=== PATIENT | male | born 1950 | race Caucasian/White ===

== ENCOUNTER 2017-08-11 06:38 | Day surgery (SDC) | payer MEDICARE, SELFPAY ==
[2017-08-08 11:31] VITALS: BMI 26.6
[2017-08-11] VITALS (15 sets, daily range): BP systolic 84–155; BP diastolic 41–82; PULSE 62–78; RESP 11–24; TEMP 36.4; O2SAT 92–98
--- NOTE | 2017-08-11 08:29 | P.PCN_ITS ---
[facility] Procedure Note Procedure Note:: Colonoscopy Procedure Report: Colonoscopy with cold snare polypectomy Endoscopist: Schuyler Bergeron II, MD Referring physician: Alexandru Boston MD Date of Procedure: August 11, 2017 Equipment: Olympus 180 variable stiffness pediatric colonoscope Sedation: Fentanyl 100 mg IV/ Versed 7 mg IV Indication: Mr. Armando is a 67-year-old gentleman who is here for follow-up screening/surveillance colonoscopy. Patient does have a history of colonic polyps and his last colonoscopy was in 2008. He reports problems with constipation and bowel habit difficulty. He reports no abdominal pain, weight loss, rectal bleeding or family history of colon cancer. Procedure: Prior to the procedure, a history and physical exam was performed, and patient' s medications and allergies were reviewed. The risks, benefits and alternatives of the sedation and procedure were discussed with the patient. All questions were answered and informed consent was obtained. The patient was brought to the procedure room. Patient identification and proposed procedure were verified by the physician and the nurse. The patient was placed in a left lateral decubitus position and the scope was passed under direct vision. Throughout the procedure, the patient's blood pressure, pulse, and oxygen saturations were monitored continuously. The colonoscopy was accomplished without difficulty. The patient tolerated the procedure well. Findings: On digital rectal examination there was normal rectal tone. There were no external hemorrhoids. The prostate was moderately to markedly firm but without nodules. The colonoscope was introduced through the anal canal to the rectum and advanced to the cecum. The ileocecal valve and appendiceal orifice were identified. The scope was advanced a short distance into the ileum which appeared grossly normal. The scope was then withdrawn into the colon. There were 10 colon polyps identified in the cecum/ascending ?4, sigmoid ?2 and rectum ?3. These ranged in size from 4-7 mm and were all removed via cold snare polypectomy. There were scattered diverticuli throughout the colon more predominantly in the descending and sigmoid colon (LEFT colon). The rectum itself was normal. Upon retroflexion within the rectum there were grade 1 internal hemorrhoids. Impression: 1. Colonic polyps ?10 2. Pandiverticulosis 3. Grade 1 internal hemorrhoids 4. Very firm prostate Plan: I will follow up the polyp pathology and recommend repeat colonoscopy again in 3 years based upon the polyp histology. Based on the patient's problems with constipation, would recommend a fiber bowel regimen once or twice daily on a routine daily basis. I will recommend PSA testing at this has not been recently performed.
[2017-08-11 10:54] LABS: Prostate Specific Ag, Diagnost 2.82 ng/mL (0.0-4.0)
== END 2017-08-11 10:00 | disposition home or self-care (01) ==
LOC: OUTP 06:41
PROVIDERS: PCP Family Medicine; Visit Provider Internal Medicine Gastroenterology
PROC: 0DJD8ZZ Inspection of Lower Intestinal Tract, Via Natural or Artificial Opening Endoscopic (ICD-10-PCS; CPT 45378; principal; 2017-08-11 08:30)
DX: Z12.11 Encounter for screening for malignant neoplasm of colon (principal); K63.5 Polyp of colon; K57.30 Diverticulosis of large intestine without perforation or abscess without bleeding; K64.0 First degree hemorrhoids; Z86.010 Personal history of colon polyps
CPT/HCPCS: 45380; 84153; 88305; 99152; 99153

== ENCOUNTER → 2017-08-23 12:38 | Outpatient (CLI) | payer MEDICARE, SELFPAY ==
--- NOTE | 2017-08-23 12:41 | CT_ITS ---
EXAM: CT LUNG LOW DOSE WO CONTRAST COMPARISON: None HISTORY: 67-year-old male with 54 pack-year smoking history asymptomatic ORDERING PHYSICIAN: Julio Cesar Boston MD PATIENT AGE: 67 years TECHNIQUE: The exam was performed on a GE Light Speed [address] scanner using 2.94 mGy CTDI. A low dose helical CT CHEST was performed on a multi-detector scanner The LDCT was performed in a facility that meets the criteria for the screening program. Data regarding this exam was submitted to ACR which is an approved registry. The order for this exam indicates that it came as a result of a lung cancer screening counseling shard decision-making visit that included all the elements required of such a visit including smoking cessation. The radiologist interpreting this exam meets the [facility] criteria for the LDCT lung cancer screening program. The exam is reported using the Lung-RADS classification scale and reported to the ACR registry. NOTE: This study was performed for the specific purposes of lung cancer screening and is not an alternative to diagnostic chest CT. RADIATION DOSE: CTDI vol(CT dose Index-volume) = 2.94mG DLP (Dose Length Product) = 98.78 mGcm FINDINGS: Mild centrilobular emphysematous changes with calcified granuloma in the left upper lobe. There is mild motion artifact which does obscure fine detail and may obscure small nodules there is a 5 mm noncalcified nodule in the superior segment left lower lobe 08/25/2017 exam There are degenerative changes in the thoracic spine with kyphosis and mild wedging of T8, T9, and T11 likely chronic. IMPRESSION: 1. Lung RADS Category: 3, probably benign 2. Other findings: Emphysema/COPD Degenerative change thoracic spine. Old granulomatous disease RECOMMENDATIONS: 6 month LDCT follow-up
== END ==
PROVIDERS: PCP Family Medicine; Visit Provider Family Medicine
DX: Z87.891 Personal history of nicotine dependence (principal); Z12.2 Encounter for screening for malignant neoplasm of respiratory organs

== ENCOUNTER → 2018-09-04 12:49 | Outpatient (CLI) | payer MEDICARE, SELFPAY ==
--- NOTE | 2018-09-04 13:45 | CT_ITS ---
CT lung screening EXAM: CT LUNG LOW DOSE WO CONTRAST HISTORY: 55 pack year smoking history asymptomatic for lung cancer ITS.REASON: TOBACCO USE ORDERING PHYSICIAN: Julio Cesar Boston MD PATIENT AGE: 68 years COMPARISON: 08/23/2017 TECHNIQUE: The exam was performed on a GE Light Speed [address] scanner using 2.90 mGy CTDI. A low dose helical CT CHEST was performed on a multi-detector scanner. All CT scans at the facility use one or more dose reduction, viz: automated exposure control, ma/kV adjustment per patient size (including targeted exams where dose is matched to indication, i.e. head), or iterative reconstruction technique. The LDCT was performed in a facility that meets the criteria for the screening program. Data regarding this exam was submitted to ACR which is an approved registry. The order for this exam indicates that it came as a result of a lung cancer screening counseling shard decision-making visit that included all the elements required of such a visit including smoking cessation. The radiologist interpreting this exam meets the CMS criteria for the LDCT lung cancer screening program. The exam is reported using the Lung-RADS classification scale and reported to the ACR registry. NOTE: This study was performed for the specific purposes of lung cancer screening and is not an alternative to diagnostic chest CT. RADIATION DOSE: CTDI vol(CT dose Index-volume) = 2.90mG DLP (Dose Length Product) = 96.27 mGcm FINDINGS: Centrilobular disease/COPD. Old granulomatous disease. Stable 5 mm nodule right upper lobe axial image #31 Stable 4 mm nodule superior segment left lower lobe No new nodules apparent Calcified granuloma left upper lobe Degenerative changes thoracic spine with mild kyphosis and mild chronic wedging of T7, T8, and T9 IMPRESSION: 1. Lung RADS Category: 2, benign 2. Other findings: Centrilobular emphysema, COPD RECOMMENDATIONS: 12 month LDCT follow-up
[2018-09-04 13:50] LABS: Basophils # 0.1 K/mm3 (0-0.2); Basophils % 0.6 % (0.1-2.0); Eosinophils # 0.1 K/mm3 (0.0-0.4); Eosinophils % 0.9 % (0.1-12.0); Hematocrit 48.6 % (42.0-52.0); Hemoglobin 16.2 g/dL (14.1-18.0); Lymphocytes # 1.6 K/mm3 (0.7-4.5); Lymphocytes % 18.5 % (10-50); Mean Corpuscular HGB Conc 33.4 g/dL (31.8-35.4); Mean Corpuscular Volume 89.9 fl (80-94); Mean Platelet Volume 7.9 fl (7.4-10.4); Monocytes # 0.5 K/mm3 (0.1-1.0); Monocytes % 5.1 % (1.7-9.3); Neutrophils # 6.6 K/mm3 (1.8-7.8); Neutrophils % 74.9 % (37.0-80.0); Platelet Count 266 K/mm3 (142-424); Red Blood Count 5.41 M/mm3 (4.60-6.20); Red Cell Distribution Width 13.7 % (11.5-17.5); White Blood Count 8.8 K/mm3 (4.8-10.8)
[2018-09-04 19:58] LABS: Blood Urea Nitrogen 16 mg/dL (7-18); Calcium 9.2 mg/dL (8.5-10.1); Carbon Dioxide 32 mmol/L (21.0-32.0); Chloride 105 mmol/L (98-107); Creatinine,Serum 1.16 mg/dL (0.70-1.30); Estimated Glomerular Filt Rate 62 ml/min (>60); GFR (African American) 75 ML/MIN (>60); Glucose 54 mg/dL (74-106); Sodium 145 mmol/L (136-145)
== END ==
PROVIDERS: Surgery; PCP Family Medicine; Visit Provider Family Medicine
DX: Z12.2 Encounter for screening for malignant neoplasm of respiratory organs (principal); Z87.891 Personal history of nicotine dependence; J43.9 Emphysema, unspecified; K40.90 Unilateral inguinal hernia, without obstruction or gangrene, not specified as recurrent
CPT/HCPCS: 36415; 80048; 85025

== ENCOUNTER → 2018-09-04 13:21 | Outpatient (CLI) | payer MEDICARE, SELFPAY | PROVIDERS: Visit Provider Surgery | DX: K50.90 Crohn's disease, unspecified, without complications (principal) | CPT/HCPCS: 36415; 80048; 85025 ==

== ENCOUNTER → 2020-07-15 14:12 | Outpatient (CLI) | payer MEDICARE, SELFPAY ==
--- NOTE | 2020-07-15 14:16 | CT_ITS ---
PROCEDURE: CT LUNG SCREENING CLINICAL INDICATION: H/O NICOTINE DEPENDENCY COMPARISON: CT LUNGSCREEN CT lung screening from 09/04/2018 TECHNIQUE: The exam was performed on a GE Light Speed [address] scanner using 2.90 mGy CTDI. A low dose helical CT CHEST was performed on a multi-detector scanner. All CT scans at the facility use one or more dose reduction, viz: automated exposure control, ma/kV adjustment per patient size (including targeted exams where dose is matched to indication, i.e. head), or iterative reconstruction technique. The LDCT was performed in a facility that meets the criteria for the screening program. Data regarding this exam was submitted to ACR which is an approved registry. The order for this exam indicates that it came as a result of a lung cancer screening counseling shard decision-making visit that included all the elements required of such a visit including smoking cessation. The radiologist interpreting this exam meets the [facility] criteria for the LDCT lung cancer screening program. The exam is reported using the Lung-RADS classification scale and reported to the ACR registry. NOTE: This study was performed for the specific purposes of lung cancer screening and is not an alternative to diagnostic chest CT. RADIATION DOSE: CTDI vol(CT dose Index-volume) = 2.90mG DLP (Dose Length Product) = 92.99 mGcm FINDINGS: Changes of COPD and old granulomatous disease. No new suspicious nodules apparent. A stable 5 mm nodules present in the right upper lobe. Stable 4 mm nodule superior segment left lower lobe. OTHER FINDINGS: Degenerative changes thoracic spine with mild kyphosis and mild wedging T11-T9 T8 T7 and T6 not significantly changed.. There is mild prominence of the ascending aorta at 4 cm not significantly changed IMPRESSION: Lung-RADS Category 2 Benign Appearance or Behavior Follow-up: Continue annual screening with LDCT in 12 months Dictated by: Joshua Miranda MD 07/29/2020 18:14 Joshua Miranda MD in [place] 07/29/2020 18:14
== END ==
PROVIDERS: PCP Family Medicine; Visit Provider Family Medicine
DX: Z87.891 Personal history of nicotine dependence (principal); Z12.2 Encounter for screening for malignant neoplasm of respiratory organs

== ENCOUNTER → 2022-03-07 13:19 | Outpatient (CLI) | payer MEDICARE, SELFPAY | PROVIDERS: PCP Family Medicine; Visit Provider Family Medicine | DX: U07.1 COVID-19 (principal) | CPT/HCPCS: C9803; U0003; U0005 ==

== ENCOUNTER → 2022-04-20 11:23 | Outpatient (CLI) | payer MEDICARE, SELFPAY | PROVIDERS: PCP Family Medicine; Visit Provider Surgery | DX: Z01.812 Encounter for preprocedural laboratory examination (principal); Z20.822 Contact with and (suspected) exposure to COVID-19; Z12.11 Encounter for screening for malignant neoplasm of colon | CPT/HCPCS: C9803; U0003; U0005 ==

== ENCOUNTER → 2022-08-11 14:07 | Outpatient (CLI) | payer MEDICARE, SELFPAY ==
--- NOTE | 2022-08-11 14:16 | CT_ITS ---
FINAL REPORT TECHNIQUE: Axial CT images of the chest were obtained without contrast. Low-dose protocol was utilized. This study was performed with techniques to keep radiation doses as low as reasonably achievable (ALARA). Individualized dose reduction techniques using automated exposure control or adjustment of mA and/or kV according to the patient's size were employed. CLINICAL HISTORY: H/O NICOTINE DEPENDENCE current smoker 1/2ppd x59 years COMPARISON: 07/15/2022 FINDINGS: CT CHEST WITHOUT, LOW DOSE SCREENING CT Di Vol: 2.90 mGy DLP: 98.47 mGy*cm There is no axillary, mediastinal, or hilar adenopathy. The heart size is normal. There is no pleural or pericardial effusion. The lung windows show interval development of right upper lobe mass peripherally near the level of the minor fissure measuring 29 x 26 mm. This is highly suspicious for neoplasm. A 4 mm right upper lobe nodule on image 28 and a 4 mm left lower lobe nodule on image 39 are stable. Limited images of the upper abdomen are unremarkable. IMPRESSION: Interval development of a dominant right lower lobe lesion highly suspicious for neoplasm. Other small nodules are stable. LR Category 4B: Recommend CT guided biopsy and PET-CT. Reviewed, Interpreted and Dictated by Julio Cesar Gotti MD Transcribed by Elizabeth Delaney Authenticated and [facility]
== END ==
PROVIDERS: PCP Family Medicine; Visit Provider Family Medicine
DX: Z87.891 Personal history of nicotine dependence (principal); Z12.2 Encounter for screening for malignant neoplasm of respiratory organs
CPT/HCPCS: 71271

== ENCOUNTER 2022-09-02 09:36 | Day surgery (SDC) | payer MEDICARE, SELFPAY ==
[2022-09-01 12:55] VITALS: BMI 28.3
[2022-09-02 10:34] VITALS: BP 170/83; PULSE 78; RESP 18; TEMP 36.8; O2SAT 96
--- NOTE | 2022-09-02 10:58 | EXP.ANES.CKL ---
[facility] Disclaimer: The information contained in this section may have been updated after the patient was seen, as this information can be updated by other users. Medical History Allergies COPD (chronic obstructive pulmonary disease) Hemorrhoid Hyperthyroidism Hypothyroid Surgical History History of colonoscopy Hx of umbilical hernia repair Family History Other Family history of cancer Family history of diabetes mellitus type II Family history of hypothyroidism Social History Smoking Status: Current every day smoker tobacco type: cigarettes packs per day: 1 alcohol intake: never substance use type: denies use current occupational status: retired Travel in the last 8 weeks: None household members: spouse housing: house marital status: caffeine: Yes (2 CUPS/DAY) special melanie needs: No agree to transfusion: No do you feel safe at home: Yes victim of physical abuse: No victim of emotional abuse: No victim of sexual abuse: No would you like helpful sources: No [facility] Anesthesia Checklist Patient Identification Patient Identification: Arm Band Structural Data Admitted From: Home Planned Operative Procedure/s: colonoscopy Consent for Planned Operative Procedure(s) Verified: Yes Verified Documents: Surgical Consent NPO Status Verified Time NPO: 00:00 Additional verifications Patient : No Anesthesia Reactions: No Hx Blood Transfusions: No Blood Transfusion Reaction: No Cephalosporin Allergy: No Previous Colonoscopy: No Airway Assessment C-Spine Mobility Assessed: Yes TMJ Mobility Assessed: Yes Dentition: Edentulous Neurological Assessment Level of Consciousness: Awake, Alert, Appropriate and Follows Commands Hx Seizures: No Numbness or tingling in extremities: No Anesthesia Plan Anesthesia Risk discussed: Yes ASA Class: II Anesthesia Type: MAC Preoperative Comments Pre-Operative Comments: Unable to deficate.
[2022-09-02 12:16] VITALS: O2SAT 96
--- NOTE | 2022-09-02 13:16 | HMH.SCOPE ---
Procedure: Date: 09/02/22 Patient Date of :: 1950 Procedure Performed:: Total colonoscopy with multiple polypectomy Indications:: Patient is a 72-year-old male from [place]. He underwent colonoscopy in 2008. Patient had colonoscopy [address] Bergeron and had 10 polyps removed, at least 6 of these were tubular adenomas, and he recommended a 3-year follow-up colonoscopy. Patient has been having some symptoms of constipation. This had previously been noted on prior colonoscopy as well. He was referred for colonoscopy. Performing Provider:: Doroteo Perez MD Referring Provider:: Janusz Boston Sedation:: MAC sedation Procedure:: Patient history was obtained and appropriate physical examination was performed. Patient's medications and allergies were reviewed. Informed consent was obtained after explaining the benefits, alternatives, and risks of the procedure including, but not limited to, bleeding, perforation, missed lesions, and adverse reaction to anesthesia medications. Patient was transported to endoscopy procedure room. Patient was connected to monitoring devices. Throughout the procedure the patient's blood pressure, pulse, and oxygen saturations were monitored continuously. Patient identification and planned procedure were verified by the staff. Patient was positioned in lateral decubitus position. Digital anorectal exam was performed. Variable stiffness Olympus colonoscope was inserted and advanced under direct visualization to the cecum. Adequacy of the colonic preparation was noted. The colonoscope was advanced a short distance into the terminal ileum. The colonoscope was then slowly withdrawn while carefully examining the color, texture, anatomy, and integrity of the mucosoa circumferentially. Within the rectum retroflexion was performed. Colonoscope was then withdrawn. Findings:: He had a very poor preparation. There was particulate stool throughout the colon with some solid stool balls. Despite high-volume irrigation and suctioning this could not be cleared in its entirety. There was some pandiverticulosis, moderate, throughout. There was a transverse colon polyp and a ascending colon polyp both removed with cold snare and sent in single specimen container. For retrieval the colonoscope was readvanced and after irrigation and suctioning there were noted to be a couple of small cecal polyps which were removed with a biopsy forceps. Visualization was limited due to the poor preparation. In the descending colon there was a small polyp removed with cold snare with residual base tissue removed with biopsy forceps. In the sigmoid colon there was a polyp removed with snare. He was noted to have some appreciable redundancy of the colon. There were no obvious obstructing masses or polyps. Recommendations:: Source of his constipation is likely functional. Given the number of polyps and poor preparation repeat colonoscopy likely 1 to 2 years with maximum prep. Complications:: None immediate Estimated blood obtained (mL): 2
[2022-09-02 13:22] VITALS: BP 110/58; PULSE 59; RESP 15; TEMP 36.5; O2SAT 98
[2022-09-02 13:32] VITALS: BP 113/73; PULSE 56; RESP 17; O2SAT 99
[2022-09-02 13:42] VITALS: BP 123/73; PULSE 57; RESP 16; O2SAT 96
== END 2022-09-02 14:00 | disposition home or self-care (01) ==
PROVIDERS: PCP Family Medicine; Visit Provider Surgery
PROC: 0DJD8ZZ Inspection of Lower Intestinal Tract, Via Natural or Artificial Opening Endoscopic (ICD-10-PCS; principal; 2022-09-02 11:30)
DX: Z12.11 Encounter for screening for malignant neoplasm of colon (principal); D12.3 Benign neoplasm of transverse colon; D12.0 Benign neoplasm of cecum; D12.4 Benign neoplasm of descending colon; D12.5 Benign neoplasm of sigmoid colon; Z86.010 Personal history of colon polyps; Z91.199 Patient's noncompliance with other medical treatment and regimen due to unspecified reason; F17.210 Nicotine dependence, cigarettes, uncomplicated; Z79.899 Other long term (current) drug therapy
CPT/HCPCS: 45380; 45385; 88305; J2704

== ENCOUNTER → 2022-09-24 09:53 | Outpatient (CLI) | payer MEDICARE, SELFPAY ==
[2022-09-24 11:13] LABS: Basophils # 0.1 K/mm3 (0-0.2); Basophils % 1.2 % (0.1-2.0); Eosinophils # 0.1 K/mm3 (0.0-0.4); Eosinophils % 1.2 % (0.1-12.0); Hematocrit 50.1 % (42.0-52.0); Hemoglobin 16.3 g/dL (14.1-18.0); Lymphocytes # 1.8 K/mm3 (0.7-4.5); Lymphocytes % 18.4 % (10-50); Mean Corpuscular HGB Conc 32.5 g/dL (31.8-35.4); Mean Corpuscular Hemoglobin 30.1 pg (27.0-31.2); Mean Corpuscular Volume 92.6 fl (80-94); Mean Platelet Volume 8.5 fl (7.4-10.4); Monocytes # 0.6 K/mm3 (0.1-1.0); Monocytes % 6.4 % (1.7-9.3); Neutrophils # 7.1 K/mm3 (1.8-7.8); Neutrophils % 72.9 % (37.0-80.0); Platelet Count 302 K/mm3 (142-424); Red Blood Count 5.41 M/mm3 (4.60-6.20); White Blood Count 9.7 K/mm3 (4.8-10.8)
[2022-09-24 11:23] LABS: INR 0.91 (0.9-1.1); Prothrombin Time 9.9 seconds (10.1-12.5)
== END ==
PROVIDERS: PCP Family Medicine; Visit Provider Internal Medicine Pulmonary Disease
DX: J45.909 Unspecified asthma, uncomplicated (principal); F17.210 Nicotine dependence, cigarettes, uncomplicated; J43.9 Emphysema, unspecified; R91.8 Other nonspecific abnormal finding of lung field; Z01.812 Encounter for preprocedural laboratory examination; Z76.89 Persons encountering health services in other specified circumstances; R79.1 Abnormal coagulation profile
CPT/HCPCS: 36415; 85025; 85610

== ENCOUNTER 2022-09-26 06:36 | Outpatient (CLI) | payer MEDICARE, SELFPAY ==
[2022-09-26] VITALS (9 sets, daily range): BP systolic 113–143; BP diastolic 63–87; PULSE 65–79; RESP 16–18; TEMP 36.3; O2SAT 95–98
--- NOTE | 2022-09-26 06:40 | CT_ITS ---
FINAL REPORT CLINICAL HISTORY: .rt lung biopsy FINDINGS: CT GUIDEDLUNG CORE BIOPSY. HISTORY: Right upper lobe mass. ATTENDING PHYSICIAN: Dr. Cross PHYSICIAN AEROSPACE PROJECT MANAGER: Shane Latham PA-C PROCEDURE: After informed consent was obtained and a timeout was performed, the patient was prepped and draped in usual sterile fashion over the right lateral chest. Utilizing local anesthesia and sterile technique with a coaxial system, access to lesion was obtained. A total of 4 separate 20-gauge core biopsies were obtained. Post biopsy films demonstrate no evidence of acute complication. Sedation was provided by anesthesiology department. The patient tolerated the procedure well and left the department in good condition. the attending pathologist determined that the sample was diagnostic. IMPRESSION: Status post CT guided core biopsy of right upper lobe mass without immediate complication. Films reviewed , interpreted and dictated by Dr. Cross. Transcribed by Shane Latham PA-C. Reviewed, Interpreted and Dictated by Doroteo Cross III, MD Transcribed by JUVE Alvarez Authenticated and . [facility]
--- NOTE | 2022-09-26 08:00 | EXP.ANES.CKL ---
[facility] Disclaimer: The information contained in this section may have been updated after the patient was seen, as this information can be updated by other users. Medical History Abnormal computerized axial tomography of chest Allergies Bleeding risk due to aspirin COPD (chronic obstructive pulmonary disease) Dyspnea on exertion Encounter for biopsy Hemorrhoid Hyperthyroidism Hypothyroid Lung mass Lung nodule seen on imaging study Pulmonary emphysema Smoking greater than 30 pack years Urinary retention Surgical History History of colonoscopy Hx of umbilical hernia repair Family History (Updated 09/26/22 @ 07:11 by Elizabeth Beltran RN) Mother Family history of cancer Other Family history of diabetes mellitus type II Family history of hypothyroidism Social History (Updated 09/26/22 @ 07:12 by Elizabeth Beltran RN) Smoking Status: Current every day smoker tobacco type: cigarettes packs per day: 1 alcohol intake: never substance use type: denies use current occupational status: retired Travel in the last 8 weeks: None household members: spouse housing: house marital status: caffeine: Yes (2 CUPS/DAY) special melanie needs: No agree to transfusion: No do you feel safe at home: Yes victim of physical abuse: No victim of emotional abuse: No victim of sexual abuse: No would you like helpful sources: No [facility] Anesthesia Checklist Patient Identification Patient Identification: Arm Band Structural Data Admitted From: Home Planned Operative Procedure/s: CT Guided Lung Biopsy Consent for Planned Operative Procedure(s) Verified: Yes Verified Documents: Surgical Consent and History and Physical NPO Status Verified Time NPO: 00:00 Additional verifications Anesthesia Reactions: No Hx Blood Transfusions: No Blood Transfusion Reaction: No Airway Assessment C-Spine Mobility Assessed: Yes TMJ Mobility Assessed: Yes Neurological Assessment Level of Consciousness: Awake and Alert Anesthesia Plan Anesthesia Risk discussed: Yes Anesthesia Plan: Verified ASA Class: III Anesthesia Type: MAC
--- NOTE | 2022-09-26 08:51 | XR_ITS ---
FINAL REPORT CLINICAL HISTORY: POST BIOPSY COMPARISON: CT from the same day FINDINGS: The heart size is normal. The mediastinum is within normal limits. There is a 36 mm lobular mass in the right midlung. There is no pleural effusion. There is no pneumothorax. The bony thorax is intact. IMPRESSION: Mid right lung mass. No pneumothorax. Reviewed, Interpreted and Dictated by Doroteo Cross III, MD Transcribed by Luis Miguel Esparza Authenticated and [facility] [place] [place]
--- NOTE | 2022-09-26 11:00 | XR_ITS ---
FINAL REPORT TECHNIQUE: Single view chest CLINICAL HISTORY: 2 HOUR POST BIOPSY COMPARISON: Exam performed earlier today FINDINGS: A single view of the chest was obtained. The heart and mediastinum are within normal limits. Again seen is a lobular mass in the right midlung. The lungs are otherwise clear. There is no pneumothorax. Osseous structures are unremarkable. IMPRESSION: No pneumothorax post biopsy. Reviewed, Interpreted and Dictated by Doroteo Cross III, MD Transcribed by Keturah Santiago Authenticated and [facility]
== END 2022-09-26 12:16 | disposition home or self-care (01) ==
PROVIDERS: PCP Family Medicine; Visit Provider Internal Medicine Pulmonary Disease
DX: R91.1 Solitary pulmonary nodule (principal)
CPT/HCPCS: 32408; 71045; 77012; 88305; 88333; 88342

== ENCOUNTER → 2022-09-29 15:02 | Outpatient (CLI) | payer MEDICARE, SELFPAY ==
[2022-09-29 17:09] LABS: Blood Urea Nitrogen 19 mg/dl (9-20); Estimated Glomerular Filt Rate 59 ml/min (>60); GFR (African American) 72 ML/MIN (>60)
== END ==
PROVIDERS: PCP Family Medicine; Visit Provider Internal Medicine Medical Oncology
DX: Z01.812 Encounter for preprocedural laboratory examination (principal); C34.90 Malignant neoplasm of unspecified part of unspecified bronchus or lung
CPT/HCPCS: 36415; 82565; 84520

== ENCOUNTER → 2022-10-03 15:39 | Outpatient (CLI) | payer MEDICARE, SELFPAY ==
--- NOTE | 2022-10-03 15:40 | MR_ITS ---
PROCEDURE INFORMATION: Exam: MR Head Without and With Contrast Exam date and time: 10/03/2022 4:34 PM Age: 72 years old Clinical indication: Screening exam; Additional info: [facility] staging TECHNIQUE: Imaging protocol: Magnetic resonance imaging of the head without and with contrast. Contrast material: PROHANCE; Contrast volume: 15 ml; Contrast route: IV; COMPARISON: No relevant prior studies available. FINDINGS: Brain: No restricted diffusion within the brain to suggest an acute infarct. There are a few small foci of FLAIR hyperintensity within the cerebral white matter. There is no mass effect or restricted diffusion associated with these foci. In a patient this age, this likely represents chronic small vessel ischemic disease. No cerebral edema. Mild cerebellar volume loss/atrophy. No abnormally enhancing intracranial mass is identified. Cerebral ventricles: There is moderate prominence of sulci, with mild to moderate prominence of ventricles, compatible with atrophy. Bones/joints: Degenerative changes are visualized within the upper cervical spine, with [id number] spinal canal stenosis at C3-C4. Paranasal sinuses: Near complete opacification of the left maxillary sinus. Mucosal thickening with mucous retention cysts or polyps in the right maxillary sinus. Mucosal thickening/effusions are seen within ethmoid air cells and frontal sinuses bilaterally. Mild mucosal thickening the bilateral sphenoid sinuses. Mastoid air cells: Minimal effusions within mastoid air cells bilaterally. Orbital cavities: Unremarkable, as visualized. Vasculature: There is a significant decrease in caliber of the rostral superior sagittal sinus, likely representing a developmental variant. Soft tissues: Unremarkable, as visualized. IMPRESSION: 1. No acute infarct. No abnormally enhancing intracranial mass is identified. 2. Minimal white matter disease, likely representing chronic small vessel ischemic disease. 3. Moderate atrophy. 4. Paranasal sinus disease. 5. Degenerative changes are visualized within the upper cervical spine, with [id number] spinal canal stenosis at C3-C4. If further evaluation is clinically indicated, a follow-up cervical MRI is suggested. 6. Additional findings described above.
== END ==
LOC: RAD 15:40
PROVIDERS: PCP Family Medicine; Visit Provider Internal Medicine Pulmonary Disease
DX: C34.91 Malignant neoplasm of unspecified part of right bronchus or lung (principal); Z03.89 Encounter for observation for other suspected diseases and conditions ruled out
CPT/HCPCS: 70553; A9576

== ENCOUNTER 2023-01-06 08:13 | Outpatient (CLI) | payer MEDICARE, SELFPAY ==
[2023-01-06 08:30] VITALS: BP 109/62; PULSE 91; RESP 16; O2SAT 96
[2023-01-06 09:30] VITALS: BP 99/55; PULSE 99; RESP 16
== END 2023-01-06 09:40 | disposition home or self-care (01) ==
LOC: INF 08:14
PROVIDERS: PCP Family Medicine; Visit Provider Internal Medicine Medical Oncology
DX: E86.0 Dehydration (principal); C34.90 Malignant neoplasm of unspecified part of unspecified bronchus or lung
CPT/HCPCS: 96360

== ENCOUNTER 2023-01-09 08:06 | Outpatient (CLI) | payer MEDICARE, SELFPAY ==
[2023-01-09 08:25] VITALS: BP 103/60; PULSE 81; RESP 18; O2SAT 94
[2023-01-09 09:22] VITALS: BP 105/50; PULSE 89; RESP 18; O2SAT 95
== END 2023-01-09 09:28 | disposition home or self-care (01) ==
LOC: INF 08:08
PROVIDERS: PCP Family Medicine; Visit Provider Internal Medicine Medical Oncology
DX: E86.0 Dehydration (principal); C34.90 Malignant neoplasm of unspecified part of unspecified bronchus or lung
CPT/HCPCS: 96360

== ENCOUNTER 2023-01-13 08:13 | Outpatient (CLI) | payer MEDICARE, SELFPAY ==
[2023-01-13 08:20] VITALS: BP 105/64; PULSE 84; RESP 18; O2SAT 95
[2023-01-13 09:27] VITALS: BP 109/68; PULSE 82
== END 2023-01-13 09:27 | disposition home or self-care (01) ==
LOC: INF 08:14
PROVIDERS: PCP Family Medicine; Visit Provider Internal Medicine Medical Oncology
DX: E86.0 Dehydration (principal); C34.90 Malignant neoplasm of unspecified part of unspecified bronchus or lung
CPT/HCPCS: 96360

== ENCOUNTER 2023-01-16 08:26 | Outpatient (CLI) | payer MEDICARE, SELFPAY ==
[2023-01-16 08:37] VITALS: BP 101/60; PULSE 90; RESP 18; O2SAT 94
[2023-01-16 09:45] VITALS: BP 114/56; PULSE 93; RESP 18; O2SAT 95
== END 2023-01-16 09:45 | disposition home or self-care (01) ==
LOC: INF 08:27
PROVIDERS: PCP Family Medicine; Visit Provider Internal Medicine Medical Oncology
DX: C34.91 Malignant neoplasm of unspecified part of right bronchus or lung (principal); E86.0 Dehydration
CPT/HCPCS: 96360

== ENCOUNTER 2024-09-23 11:43 | Outpatient (CLI) | payer MEDICARE, MEDICAID, SELFPAY ==
--- NOTE | 2024-09-23 11:51 | XR_ITS ---
FINAL REPORT TECHNIQUE: Chest PA & Lateral CLINICAL HISTORY: RT LUNG SMALL CELL CARCINOMA COMPARISON: 09/26/2022 FINDINGS: 2 views of the chest were performed. The heart size is normal. The mediastinum is within normal limits. The nodular opacity in the right lateral lung seen on the prior exam of 2022 is not well-visualized on today's exam, with a faint residual opacity that may represent scar. There are no pleural effusions. There is no pneumothorax. The bony thorax appears intact. IMPRESSION: No acute cardiopulmonary process. Reviewed, Interpreted and Dictated by Rafael Garcia MD Transcribed by Virginia Croft Authenticated and [facility]
== END 2024-09-23 23:59 | disposition home or self-care (01) ==
LOC: RAD 11:45
PROVIDERS: PCP Family Medicine; Visit Provider Family Medicine
DX: C34.91 Malignant neoplasm of unspecified part of right bronchus or lung (principal)
CPT/HCPCS: 71046

== ENCOUNTER 2024-11-21 09:18 | Outpatient (CLI) | payer MEDICARE, MEDICAID, SELFPAY ==
--- NOTE | 2024-11-21 09:25 | US_ITS ---
FINAL REPORT CLINICAL HISTORY: ARTERIOSCIEROTIC CARDIOVASCULAR DISEASE FINDINGS: Sonographic images were obtained of the abdominal aorta. The abdominal aorta measures up to 2.8 in greatest dimensions. IMPRESSION: No evidence of aortic aneurysm. Reviewed, Interpreted and Dictated by Maura Heredia MD Transcribed by Kimberly Rowan Authenticated and [facility]
== END 2024-11-21 23:59 | disposition home or self-care (01) ==
LOC: RAD 09:21
PROVIDERS: PCP Family Medicine; Visit Provider Family Medicine
DX: I25.10 Atherosclerotic heart disease of native coronary artery without angina pectoris (principal)
CPT/HCPCS: 76770

== ENCOUNTER 2025-02-17 13:18 | Outpatient (CLI) | payer MEDICARE, MEDICAID, SELFPAY ==
--- OUTSIDE RECORDS SUMMARY | 2025-02-17 13:20 | XMS_ITS | Encounter Summary ---
Author Organization Healthcare Address [address] [place] [address] Care Team Providers Care Farmhand Name Role Phone Augustine Carter MD Unavailable [phone] Franco Boston MD Primary Care Provider [phone] Reason for Visit * Reason Comments Social Work/navigation Follow-up Encounter Details Date Type Department Care Team (Late st Contact Info) Description 12/03/2024 Social Work [facility] [address] [place] [address] Doroteo Kaplan III Social History Tobacco Use Types Packs/Day Years Used Date Smoking Tobacco: Former Cigarettes 0.5 54.5 1 969 - 01/13/2023 Smokeless Tobacco: Former Chew Quit: 2020 Alcohol Use Standard Drinks/Week Comments Never 0 (1 standard drink = 0.6 oz pur e alcohol) PHQ-2 Answer Date Recorded Patient Health Questionnaire-2 Score 1 12/09/2022 PHQ-2A Answer Date Recorded Patient Health Questionnaire-2 Score 1 12/09/2022 Sex and Gender Information Value Date Recorded Sex Assigned at Not on file Legal Sex Male 7:31 PM EDT Gender Identity Not on file Sexual Orientation Not on file documented as of this encounter Functional Status * Calculated C-SSRS Risk Score (Lifetime/Recent) Answer Date of Assessment Author No Risk Indicated 12/03/2024 1:48 PM EDT Adrien Lyles * Question Answer Date of Assessment Author 1. Wish to be (Past 1 Month) No 025 1:48 PM EDT Adrien Bundy 2. Non-Specific Active Suici dayana Thoughts (Past 1 Month) No 12/03/2024 1:48 PM EDT Annie Bundy R 6. Suicidal Behavior (Lifetime) No 1:48 PM EDT Adrien Bundy R documented as of this encounter Miscellaneous Notes * Progress Notes - Doroteo Kaplan III - 12/03/2024 11:59 PM EDT Encounter Type: In Person Visit Disease Status: Established Patient Clinic Location: [facility] Disease Type: Lung & Bronchus Services Provided: Financial Support, Transportation Assistance, Resource Navigation, Gift / Gas Card Gift Card Type: [employer] Gift Card Amount: 25 Education Provided: Transportation, Financial Support/Aid Intervention Level: 3 Units (1 unit = 15 minutes): 1 Narrative: documented in this encounter Plan of Treatment Upcoming Encounters Date Type Department Care Team ([facility] st Contact Info) Description 06/06/2025 1:00 PM EST Clinical Support [facility] [address] [phone] 06/06/2025 2:00 PM EST Appointment [facility] [address] [place] [address] 06/06/2025 3:40 PM EST Office Visit [facility] [address] [address] Augustine Carter MD [address] [phone] documented as of this encounter Visit Diagnoses Not on filedocumented in this encounter Additional Health Concerns Assessment Noted Time A fall risk assessment has been complete d for the patient 12/03/2024 1:48 PM EDT documented as of this encounter Care Teams Farmhand Relationship Specialty Start Date End Date Franco Boston MD [address] [place] [address] PCP - General 12/08/23 Augustine Carter MD [address] [phone] Consulting Physician Medical Oncology 09/30/22 documented as of this encounter
--- OUTSIDE RECORDS SUMMARY | 2025-02-17 13:20 | XMS_ITS ---
Author Organization Unknown Vital Signs BpStanding BpSitting BpSupine Date Temperature HeartRate Weight Hei ght Spo2 Respiration Bmi HeadCircumference FieldCount TimeRecorded NeckCircumferen ce WaistCircumference Pulse 120/70 11/18 00:00 :00 98.3 80 170,0 5,6 27.4 4 6 02/05/2025 10:45:00 120/80 09/23 00:00 :00 97.8 81 168,6.4 0 5,6 27.1 8 6 02/05/2025 11:00:00 112/74 03/14 00:00 :00 98.6 83 164,0 5,6 26.4 7 6 02/05/2025 13:45:00
--- OUTSIDE RECORDS SUMMARY | 2025-02-17 13:20 | XMS_ITS | Encounter Summary ---
Author Organization [facility] Address [address] [place] [address] Care Team Providers Care Homoeopath Name Role Phone Augustine Carter MD Unavailable [phone] None, None Primary Care Provider [phone] Franco Boston MD Primary Care Provider [phone] Encounter Details Date Type Department Care Team (Late Contact Info) Description 09/13/2022 Orders Only External Location [address] [place] [phone] [place] [address] Social History Tobacco Use Types Packs/Day Years Used Date Smoking Tobacco: Never Assessed Sex and Gender Information Value Date Recorded Sex Assigned at Not on file Legal Sex Male 7:31 PM EDT Gender Identity Not on file Sexual Orientation Not on file documented as of this encounter Plan of Treatment Upcoming Encounters Date Type Department Care Team (Late st Contact Info) Description 06/06/2025 1:00 PM EST Clinical Support [facility] [address] [phone] 06/06/2025 2:00 PM EST Appointment [facility] [address] [place] [address] 06/06/2025 3:40 PM EST Office Visit [facility] [address] [phone] Augustine Carter MD [address] [phone] documented as of this encounter Procedures Procedure Name Priority Date/Time Associated Diagnosis Comments PET/CT FDG SKULL BASE TO MID THIGH 09/13/2022 12:43 PM EST documented in this encounter Results * PET/CT FDG Skull Base To Mid Thigh (09/13/2022 12:43 PM EST) Anatomical Region Laterality Modality Positron Emissio n Tomography (PET) 09/13/2022 12:4 3 PM EST Franco Boston [facility] PROCEDURES Final Result documented in this encounter Visit Diagnoses Not on filedocumented in this encounter Care Teams Homoeopath Relationship Specialty Start Date End Date None, None [address] [facility] [address] PCP - General NONE FOUND 10/02/22 12/07/23 Franco Boston MD [address] [facility] [address] [place] [address] PCP - General 12/08/23 Augustine Carter MD [address] [place] [phone] Consulting Physician Medical Oncology 09/30/22 documented as of this encounter
--- OUTSIDE RECORDS SUMMARY | 2025-02-17 13:20 | XMS_ITS | Encounter Summary ---
Author Organization [facility] Address [address] [place] [address] Care Team Providers Care Nanny Caregiver Name Role Phone Augustine Carter MD Unavailable [phone] None, None Primary Care Provider Franco Boston MD Primary Care Provider [phone] Encounter Details Date Type Department Care Team (Late st Contact Info) Description 10/03/2022 Lab Requisition [facility] [address] [place] [address] Augustine Carter MD [address] [address] Solitary pulmonary nodule Social History Tobacco Use Types Packs/Day Years Used Date Smoking Tobacco: Never Assessed Sex and Gender Information Value Date Recorded Sex Assigned at Not on file Legal Sex Male 7:31 PM EDT Gender Identity Not on file Sexual Orientation Not on file documented as of this encounter Plan of Treatment Upcoming Encounters Date Type Department Care Team (Late Contact Info) Description 06/06/2025 1:00 PM EST Clinical Support [facility] [address] [phone] 06/06/2025 2:00 PM EST Appointment [facility] [address] [place] [address] 06/06/2025 3:40 PM EST Office Visit [facility] [address] [address] Augustine Carter MD [address] [address] documented as of this encounter Procedures Procedure Name Priority Date/Time Associated Diagnosis Comments SURGICAL PATHOLOGY CONSULT Routine 10/03/2022 11:07 AM EDT Solitary pulmonary nodule documented in this encounter Results * Surgical Pathology Consult (10/03/2022 11:07 AM EDT) Case Report Sugical Pathology Consult Case: [id number] Authorizing Provider: Augustine Carter MD Collected: 10/03/2022 1107 Ordering Location: [facility] Lab Received: 10/03/2022 1108 Pathologist: Jamil Gonzalez MD Specimen: Lung, [id number] 3 11:[address] [facility] Final Diagnosis RIGHT LUNG, UPPER LOBE NODULE , CORE BIOPSIES, PROCEDURE DATE 09/26/2022, REVIEWED OUTSIDE SLIDES AND IHC: CONSISTENT WITH UNDIFFERENTIATED SMALL CELL CARCINOMA OF LUNG 11:[address] [facility] at 1147 EDT Clinical Information R91.1 - Solitary pulmonary nodule [ICD-10-CM] 3 11:[address] [facility] Microscopic Description Sections show nests of high grade small cell spindly epithelial malignant tumor with hyperchromatic nuclei, apoptosis, crush and nuclear streaming artefact. 11:[address] [facility] Special and Immunohistochemical Stains IHC: A2-1 P40 negative All controls show appropriate reactivity. All immunohistochemis try, in situ hybridization, and histochemical tests were developed by and are performed at the [facility], [address] [place] [address], [facility], [place] [address]. All tests reported here, except those addressing HER2 (breast) and PD-L1 expression as predictive markers, have not been cleared by or approved by the [place] Food and Drug Administration (FDA). The FDA has determined that such clearance or approval is not necessary. The laboratory is regulated under CLIA as qualified to perform high-complexity testing. The tests are used for clinical purposes. They should not be regarded as investigational or for research. This assay has not been validated on decalcified tissues. Results should be interpreted with caution given the likelihood of false negativity on decalcified specimens. 3 11:47 AM EDT [facility] Gross Description A. [id number] Received along with a corresponding pathology report from [facility] are 1 slide labeled outside case: [id number] collected on 09/26/2022. Also received as noted is [address] Gonzalez on 10/05/2022. 3 11:47 AM EDT [facility] Intradepartmental Consultation with Agreement Drs Rosaura Hassan, and Nelly Velaczo. 3 11:47 AM EDT [facility] Note: A resident was involved in the service. I attest I examined the relevant preparations for the specimens and confirmed the diagnosis or interpretation. 3 11:47 AM EDT [facility] Tissue Lung structure / Unknown 10/03/2022 11:07 AM EDT 10/03/2022 11:08 AM EDT us Augustine Carter MD LAB PATHOLOGY ORDERABLES Final Result [facility] [address] [place] [address] documented in this encounter Visit Diagnoses Diagnosis Solitary pulmonary nodule documented in this encounter Care Teams Nanny Caregiver Relationship Specialty Start Date End Date None, None [address] [place] [address] PCP - General NONE FOUND 10/02/22 12/07/23 Franco Boston MD [address] [place] [address] PCP - General 12/08/23 Augustine Carter MD [address] [place] [phone] Consulting Physician Medical Oncology 09/30/22 documented as of this encounter
--- OUTSIDE RECORDS SUMMARY | 2025-02-17 13:20 | XMS_ITS | Clinical Summary ---
Author Organization [facility] Address [address] [place] [address] Care Team Providers Care Dry Room Operator Name Role Phone Augustine Carter MD Unavailable [phone] Franco Boston MD Primary Care Provider [phone] Allergies No known active allergies Medications albuterol 108 (90 Base) MCG/ACT inhaler INHALE 2 PUFFS BY MOUTH FOUR TIMES DAILY NEEDED FOR SHORTNESS OF BREATH OR wheezing 3 Active Breo Ellipta 100-25 MCG/ACT aerosol powder INHALE 1 PUFF BY MOUTH EVERY DAY --RINSE MOUTH AFTER USE-- 3 Active levothyroxine (Synthroid, Levoxyl) 50 MCG tablet Take 1 tablet (50 mcg) by mouth 1 (one) time each day. 3 Active lisinopril 5 MG tablet Take 1 tablet (5 mg) by mouth 1 (one) time each day. 3 Active Stiolto Respimat 2.5-2.5 MCG/ACT aerosol solution inhaler INHALE TWO PUFFS BY MOUTH EVERY DAY DIRECTED 3 Active cyanocobalamin (Vitamin B-12) 100 MCG tablet Take 1 tablet (100 mcg) by mouth 1 (one) time each day. Active prochlorperazin e (Compazine) 10 MG tabletIndicatio ns:SCLC (small cell lung carcinoma) Take 1 tablet (10 mg total) by mouth every 6 (six) hours if needed for nausea or vomiting. 30 tablet 5 3 Active Additional Information Patient not taking.Reported on 12/03/2024 ondansetron (Zofran) 8 MG tabletIndicatio ns:SCLC (small cell lung carcinoma) Take 1 tablet (8 mg total) by mouth 2 (two) times a day. Take on Day 4 of each cycle then as needed for nausea. 30 tablet 5 3 Active Additional Information Patient not taking.Reported on 12/03/2024 fluticasone-homa meterol (Advair Diskus) 100-50 MCG/ACT diskus inhaler 3 Active aspirin 81 MG EC tablet Take 1 tablet by mouth Daily. Active Active Problems Problem Noted Date Diagnosed Date Need for shingles vaccine 04/18/2023 COVID-19 vaccine series not completed 04/18/2023 Smoking 10/07/2022 SCLC (small cell lung carcinoma) 10/07/2022 Cancer Staging:Clinical: Unsigned Primary hypertension 10/07/2022 Resolved Problems Problem Noted Date Diagnosed Date Resolved Date Second hand smoke exposure 12/09/2022 1 Encounter for antineoplastic chemotherapy 11/16/2022 04/18/2023 Second hand smoke exposure 10/14/2022 0 11/16/2022 Malignant neoplasm of upper lobe of right lung 10/07/2022 10/07/2022 Encounters Date Type Department Care Team Description 12/03/2024 2:40 PM EDT Office Visit [facility] [address] [phone] Augustine Carter MD Small cell carcinoma of lung, unspecified laterality, unspecified part of lung (Primary Dx); Small cell carcinoma of right lung; COVID-19 vaccine series not completed; Need for shingles vaccine 12/03/2024 2:10 PM EDT Clinical Support [facility] [address] [facility], [address] [place] [phone] SCLC (small cell lung carcinoma) 12/03/2024 Social Work [facility] [address] [facility], [address] [place] [phone] Doroteo Kaplan III 12/03/2024 Social Work [facility] [address] [facility], [address] [place] [phone] Doroteo Kaplan III 12/03/2024 Social Work Psych Oncology [address] [place] [address] Chely Clark 12/03/2024 Orders Only [facility] 800 [facility] [address] [place] [phone] Renuka Montano, JOVAN Encounter for follow-up surveillance of lung cancer (Primary Dx) 12/03/2024 Travel 11/29/2024 12:29 PM EDT - 11/29/2024 11:59 PM EDT Hospital Encounter [facility] [address], [address] [place] [address] Small cell carcinoma of lung, unspecified laterality, unspecified part of lung Discharge Disposition: Home or Self Care 11/29/2024 Travel 11/18/2024 Orders Only [facility] [address] [phone] Renuka Montano RN Small cell carcinoma of lung, unspecified laterality, unspecified part of lung (Primary Dx) from Last 3 Months Family History Medical History Relation Name Comments Cancer Mother Relation Name Status Comments Mother Social History Tobacco Use Types Packs/Day Years Used Date Smoking Tobacco: Former Cigarettes 0.5 54.5 1 969 - 01/13/2023 Smokeless Tobacco: Former Chew Quit: 2020 Tobacco Cessation:Counseling Given: Not Answered Alcohol Use Standard Drinks/Week Comments Never 0 [...] on file Sexual Orientation Not on file Last Filed Vital Signs Vital Sign Reading Time Taken Comments Blood Pressure 134/89 12/03/2024 1:45 PM EDT Pulse 86 12/03/2024 1:45 PM EDT Temperature 36.5 C (97.7 F) 12/03/2024 1:45 PM EDT Respiratory Rate 16 12/03/2024 1:45 PM EDT Oxygen Saturation 93% 12/03/2024 1:45 PM EDT Inhaled Oxygen Concentration - - Weight 76.4 kg (168 lb 6.9 oz) 12/03/2024 1:45 P M EDT Height 165.1 cm (5' 5 ) 12/03/2024 1:45 PM EDT Body Mass Index 28.03 12/03/2024 1:45 PM EDT Plan of Treatment Upcoming Encounters Date Type Department Care Team (Late st Contact Info) Description 06/06/2025 1:00 PM EST Clinical Support [facility] [address] [facility], [address] [place] [address] 06/06/2025 2:00 PM EST Appointment [facility] Radiology [address] [place] [phone] 06/06/2025 3:40 PM EST Office Visit [facility] [address] [facility], [address] [place] [phone] Augustine Carter MD [address] [phone] Health Maintenance Due Date Last Done Comments [facility]-Hepatitis C Screening 1950 [facility]-Medicare Annual Wellness (AWV) 1950 [facility]-Infant/Child/Adol SDOH Screenings 1950 [facility]-Obesity Intervention 1954 [facility]- SDOH Screenings 1966 [facility]-Adult SDOH Screenings 1966 [facility]-Zoster Vaccines (1 of 2) 1967 [facility]-[id number]-01 Vaccine (3 - Moderna risk series) 01/14/2021 12/17/2020, 11/19/2020 [facility]-RSV Vaccine: 60+ Years o r (1 - 1-dose 75+ series) 2023 [facility]-Depression Screening 12/10/2023 12/09/2022 [facility]-Influenza Vaccine (#1) 03/17/202507/08, 08/16/2017 [facility]-DTaP,Tdap,and Td Vaccine s (2 - Td or Tdap) 09/06/2027 09/06/2017 [facility]-Pneumococcal Vaccine: 50 + Years Completed 06/06/2022, 09/06/2017 HPV Vaccines Aged Out No longer eligi ble based on patient's age to complete this topic [facility]-HIB Vaccines Aged Out No longer e ligible based on patient's age to complete this topic [facility]-Hepatitis A Vaccines Aged Out No longer eligible based on patient's age to complete this topic [facility]-IPV Vaccines Aged Out No longer e ligible based on patient's age to complete this topic [facility]-Rotavirus Vaccines Aged Out No lo nger eligible based on patient's age to complete this topic Procedures Procedure Name Priority Date/Time Associated Diagnosis Comments CBC WITH AUTO DIFFERENTIAL Routine 12/03/2024 1:54 PM EDT SCLC (small cell lung carcinoma) COMPREHENSIVE METABOLIC PANEL, PLASMA Routine 12/03/2024 1:54 PM EDT SCLC (small cell lung carcinoma) TSH Routine 12/03/2024 1:54 PM EDT SCLC (small cell lung carcinoma) CT CHEST W IV CONTRAST Routine 12:46 PM EDT Small cell carcinoma of lung, unspecified laterality, unspecified part of lung from Last 3 Months Results * CBC and Differential (12/03/2024 1:54 PM EDT) WBC Count 7.68 3.70 - 10.30 10*3/uL LAB HEMATOLOGY METHOD 12/03/2024 2:09 PM EDT [facility] RBC Count 5.24 4.60 - 6.10 10*6/uL LAB HEMATOLOGY METHOD 12/03/2024 2:09 PM EDT [facility] HGB 15.7 13.7 - 17.5 g/dL LAB HEMATOLOGY METHOD 12/03/2024 2:09 PM EDT [facility] HCT 46.6 40.0 - 51.0 % LAB HEMATOLOGY METHOD 12/03/2024 2:09 PM EDT [facility] Platelet Count 223 155 - 369 10*3/uL LAB HEMATOLOGY METHOD 12/03/2024 2:09 PM EDT [facility] MCV 89 79 - 98 fL LAB HEMATOLOGY METHOD 12/03/2024 2:09 PM EDT [facility] MCH 30.0 26.0 - 32.0 pg LAB HEMATOLOGY METHOD 12/03/2024 2:09 PM EDT [facility] MCHC 33.7 30.7 - 35.5 g/dL LAB HEMATOLOGY METHOD 12/03/2024 2:09 PM EDT [facility] RDW 13.1 11.5 - 14.5 % LAB HEMATOLOGY METHOD 12/03/2024 2:09 PM EDT [facility] MPV 9.9 8.8 - 12.5 fL LAB HEMATOLOGY METHOD 12/03/2024 2:09 PM EDT [facility] nRBC 0.0 <=0.0 per 100 WBCs LAB HEMATOLOGY METHOD 12/03/2024 2:09 PM EDT [facility] Differential Type Automated LAB HEMATOLOGY METHOD 12/03/2024 2:09 PM EDT [facility] Neutrophils % 74 % LAB HEMATOLOGY METHOD 12/03/2024 2:09 PM EDT [facility] Lymphocytes % 17 % LAB HEMATOLOGY METHOD 12/03/2024 2:09 PM EDT [facility] Monocytes % 6 % LAB HEMATOLOGY METHOD 12/03/2024 2:09 PM EDT [facility] Eosinophils % 1 % LAB HEMATOLOGY METHOD 12/03/2024 2:09 PM EDT [facility] Basophils % 1 % LAB HEMATOLOGY METHOD 12/03/2024 2:09 PM EDT [facility] Immature Granulocytes % 1 % LAB HEMATOLOGY METHOD 12/03/2024 2:09 PM EDT [facility] Neutrophils Absolute 5.78 1.60 - 6.10 10*3/uL LAB HEMATOLOGY METHOD 12/03/2024 2:09 PM EDT [facility] Lymphocytes Absolute 1.27 1.20 - 3.90 10*3/uL LAB HEMATOLOGY METHOD 12/03/2024 2:09 PM EDT [facility] Monocytes Absolute 0.44 0.30 - 0.90 10*3/uL LAB HEMATOLOGY METHOD 12/03/2024 2:09 PM EDT [facility] Eosinophils Absolute 0.09 0.00 - 0.50 10*3/uL LAB HEMATOLOGY METHOD 12/03/2024 2:09 PM EDT [facility] Basophils Absolute 0.06 0.00 - 0.10 10*3/uL LAB HEMATOLOGY METHOD 12/03/2024 2:09 PM EDT [facility] Immature Granulocytes Absolute 0.04 0.00 - 0.06 10*3/uL LAB HEMATOLOGY METHOD 12/03/2024 2:09 PM EDT [facility] Blood Venous blood specimen / Unknown Venipuncture / Unknown 12/03/2024 1:54 PM EDT 12/03/2024 2:01 PM EDT Narrative [facility] - 12/03/2024 2:09 PM EDT Therapeutic decision making should be based on absolute values, rather than percentages. us Augustine Carter MD LAB BLOOD ORDERABLES Final Res ult Performing Organization Address City/[facility]/ZIP Co de Phone Number [facility] [address] [place] [address] * Thyroid Stimulating Hormone, Plasma (TSH) (12/03/2024 1:54 PM EDT) Thyroid Stimulating Hormone, Plasma 3.44 0.40 - 4.20 uIU/mL 12/03/2024 2:40 PM EDT [facility] Blood Venous blood specimen / Unknown Venipuncture / Unknown 12/03/2024 1:54 PM EDT 12/03/2024 2:03 PM EDT us Augustine Carter MD LAB BLOOD ORDERABLES Final Res ult Performing Organization Address City/[facility]/ZIP Co de Phone Number [facility] [address] [place] [address] * (ABNORMAL) Comprehensive Metabolic Panel, Plasma (12/03/2024 1:54 PM EDT) Glucose, Plasma 96 74 - 99 mg/dL 12/03/2024 2:40 PM EDT [facility] BUN, Plasma 15 8 - 23 mg/dL 12/03/2024 2:40 PM EDT [facility] Creatinine, Plasma 1.42(H) 0.70 - 1.20 mg/dL 12/03/2024 2:40 PM EDT [facility] BUN/Creatinine Ratio 11 12/03/2024 2:40 PM EDT [facility] Sodium, Plasma 141 136 - 145 mmol/L 12/03/2024 2:40 PM EDT [facility] Potassium, Plasma 4.4 3.6 - 4.9 mmol/L 12/03/2024 2:40 PM EDT [facility] Chloride, Plasma 105 97 - 107 mmol/L 12/03/2024 2:40 PM EDT [facility] CO2, Plasma 25 22 - 29 mmol/L 12/03/2024 2:40 PM EDT [facility] Anion Gap 11 6 - 16 mmol/L 12/03/2024 2:40 PM EDT [facility] Total Calcium, Plasma 8.8(L) 8.9 - 10.2 mg/dL 12/03/2024 2:40 PM EDT [facility] Total Protein 6.2(L) 6.3 - 7.9 g/dL 12/03/2024 2:40 PM EDT [facility] Albumin, Plasma 4.0 3.5 - 5.2 g/dL 12/03/2024 2:40 PM EDT [facility] AST, Plasma 17 10 - 50 U/L 12/03/2024 2:40 PM EDT [facility] Comment:Hemolyzed, result ma y be falsely increased. ALT, Plasma 8(L) 10 - 50 U/L 12/03/2024 2:40 PM EDT [facility] Alkaline Phosphatase, Plasma 78 40 - 115 U/L 12/03/2024 2:40 PM EDT [facility] Total Bilirubin, Plasma 0.4 0.2 - 1.1 mg/dL 12/03/2024 2:40 PM EDT [facility] eGFRcr 51.2 mL/min/1.7 3m*2 12/03/2024 2:40 PM EDT [facility] Comment:Reported eGFRcr in m L/min/1.73m2 is based the CKD-EPI 2020 equation that does not use a race coefficient. Blood Venous blood specimen / Unknown Venipuncture / Unknown 12/03/2024 1:54 PM EDT 12/03/2024 2:03 PM EDT us Augustine Carter MD LAB BLOOD ORDERABLES Final Res ult [facility] [address] [place] [address] * CT Chest w IV Contrast (11/29/2024 12:46 PM EDT) Anatomical Region Laterality Modality Chest Computed Tomogra phy Impressions 11/29/2024 1:11 PM EDT No evidence of thoracic progression. CRITICAL RESULT: No. COMMUNICATION: Per this written report. Drafted by Navin De MD on 11/29/2024 1:02 PM Final report signed by Navin De MD on 11/29/2024 1:11 PM Narrative 11/29/2024 1:11 PM EDT CLINICAL INDICATION: cancer evaluation TECHNIQUE: Multiple CT helical images were obtained from thoracic inlet through upper abdomen with administration of IV contrast. 100 mL of Omnipaque-300 were administered intravenously. Total DLP (Dose-Length Product): 240.02 mGy.cm. Please note: The reported value represents the total of one or more individual components during the CT acquisition on this date and at this time, and as such, the same value may appear in more than one CT report depending on the interpreting/reporting physicians. COMPARISON: August 25, 2023, 11/24/2023 FINDINGS: Mediastinum and Pleura: No enlarging mediastinal or hilar adenopathy. No pleural effusion. No pericardial effusion. Atherosclerotic changes of the thoracic aorta Lungs: Stable 13 mm peripheral right upper lobe nodule (series 4 image 156). Tiny right upper lobe nodule is stable (series 3 image 37) Residual nodule along the fissure (series 3 image 40) is similar to prior. Upper Abdomen: No suspicious finding. Atherosclerosis of the aorta. Splenic calcifications.. Musculoskeletal: No suspicious lytic or sclerotic lesion. Accentuated thoracic kyphosis. Degenerative changes of the spine. Procedure Note Navin De MD - 11/29/2024 CLINICAL INDICATION: cancer evaluation TECHNIQUE: Multiple CT helical images were obtained from thoracic inlet through upperabdomen with administration of IV contrast. 100 mL of Omnipaque-300 wereadministered intravenously. Total DLP (Dose-Length Product): 240.02 mGy.cm. Please note: The reportedvalue represents the total of one or more individual components during theCT acquisition on this date and at this time, and as such, the same valuemay appear in more than one CT report depending on theinterpreting/reporting physicians. COMPARISON: August 25, 2023, 11/24/2023 FINDINGS: Mediastinum and Pleura: No enlarging mediastinal or hilar adenopathy. Nopleural effusion. No pericardial effusion. Atherosclerotic changes of thethoracic aorta Lungs: Stable 13 mm peripheral right upper lobe nodule (series 4 ). Tiny right upper lobe nodule is stable (series 3 image 37) Residualnodule along the fissure (series 3 image 40) is similar to prior. Upper Abdomen: No suspicious finding. Atherosclerosis of the aorta.Splenic calcifications.. Musculoskeletal: No suspicious lytic or sclerotic lesion. Accentuatedthoracic kyphosis. Degenerative changes of the spine. IMPRESSION: No evidence of thoracic progression. CRITICAL RESULT: No. COMMUNICATION: Per this written report. Drafted by Navin De MD on 11/29/2024 1:02 PM Final report signed by Navin De MD on 11/29/2024 1:11 PM Augustine Carter MD IMG CT PROCEDURES Final Result from Last 3 Months Insurance MEDICA[place] MEDICARE Care Teams Dry Room Operator Relationship Specialty Start Date End Date Franco Boston MD [address] [place] [address] PCP - General 12/08/23 Augustine Carter MD [address] [place] [phone] Consulting Physician Medical Oncology 09/30/22
--- OUTSIDE RECORDS SUMMARY | 2025-02-17 13:20 | XMS_ITS | Encounter Summary ---
Author Organization [facility] Address [facility] [place] [address] Care Team Providers Care Academic Affairs Dean Name Role Phone Augustine Carter MD Unavailable [phone] None, None Primary Care Provider [phone] Franco Boston MD Primary Care Provider [phone] Encounter Details Date Type Department Care Team (Late Contact Info) Description 08/11/2022 Orders Only External Location [address] [place] [phone] Provider, External Social History Tobacco Use Types Packs/Day Years [...] [facility] [address] [phone] 06/06/2025 2:00 PM EST Appointment [facility] Radiology [address] [place] [phone] 06/06/2025 3:40 PM EST Office Visit [facility] [address] [phone] Augustine Carter MD [address] [phone] documented as of this encounter Procedures Procedure Name Priority Date/Time Associated Diagnosis Comments CT CHEST LUNG CANCER SCREENING 08/11/2022 2:19 PM EST documented in this encounter Results * CT Chest Lung Cancer Screening (08/11/2022 2:19 PM EST) Anatomical Region Laterality Modality Chest Computed Tomogra phy 08/11/2022 2:19 PM EST us External Provider IMG CT PROCEDURES Final Result documented in this encounter Visit Diagnoses Not on filedocumented in this encounter Care Teams Academic Affairs Dean Relationship Specialty Start Date End Date None, None [address] [place] [address] PCP - General NONE FOUND 10/02/22 12/07/23 Franco Boston MD [address] [place] [address] PCP - General 12/08/23 Augustine Carter MD [address] [place] [phone] Consulting Physician Medical Oncology 09/30/22 documented as of this encounter
--- OUTSIDE RECORDS SUMMARY | 2025-02-17 13:20 | XMS_ITS ---
Author Organization [facility] Address [address] [place] [address] Care Team Providers Care Food Service Driver Name Role Phone Augustine Carter MD Unavailable [phone] Franco Boston MD Primary Care Provider [phone] Active Problems Problem Noted Date Diagnosed Date Need for shingles vaccine 04/18/2023 COVID-19 vaccine series not completed 04/18/2023 Smoking 10/07/2022 SCLC (small cell lung carcinoma) 10/07/2022 Cancer Staging:Clinical: Unsigned Primary hypertension 10/07/2022 Current Treatment and Therapy Plans No current plan information found. Past Treatment and Therapy Plans Oncology Treatment Plan Name Start Date Discontinue Date Treatment Medications Discontinue Reason Plan Provider Cycles Etoposide Daily x 3 / CISplatin +/- XRT Every 21 Days 3 04/17/2023 CISplatin (Platinol)Etop oside (Toposar) Other (See Comments) Augustine Carter MD Treatment not started CARBOplatin / Etoposide Daily x 3 Every 21 Days 3 01/16/2023 CARBOplatin (Paraplatin) IVPB (by AUC: GOG-COCKCROFT GAULT)etoposid e (Vepesid) IVPB Therapy Complete Augustine Carter MD 4 of 4 cycles started Etoposide Daily x 3 / CISplatin +/- XRT Every 21 Days 3 10/14/2022 CISplatin (Platinol)Etop oside (Toposar) Other (See Comments) Augustine Carter MD Treatment not started Radiation Treatments * Course C1 11/08/2022 - 11/18/2022 Treatment Period Energy Fraction Dose Fractions Total Dose Plans Planned A1A2 11/08/2022 - 11/18/2022 1,000 cGy 5,000 cGy Reference Points Delivered RUL 11/08/2022 - 11/18/2022 5,000 cGy Resolved Problems Problem Noted Date Diagnosed Date Resolved Date Second hand smoke exposure 12/09/2022 1 Encounter for antineoplastic chemotherapy 11/16/2022 04/18/2023 Second hand smoke exposure 10/14/2022 0 11/16/2022 Malignant neoplasm of upper lobe of right lung 10/07/2022 10/07/2022
--- OUTSIDE RECORDS SUMMARY | 2025-02-17 13:20 | XMS_ITS | Encounter Summary ---
Author Organization Healthcare Address [place] [address] Care Team Providers Care Cartridge Loading Operator Name Role Phone Augustine Carter MD Unavailable [phone] None, None Primary Care Provider [phone] Franco Boston MD Primary Care Provider [phone] Encounter Details Date Type Department Care Team (Late Contact Info) Description 07/15/2020 Orders Only External Location [address] [place] [phone] Provider, External Social History Tobacco Use Types [...] [facility] [address] [phone] 06/06/2025 2:00 PM EST Appointment [facility] [address] [place] [phone] 06/06/2025 3:40 PM EST Office Visit [facility] [address] [phone] Augustine Carter MD [address] [phone] documented as of this encounter Procedures Procedure Name Priority Date/Time Associated Diagnosis Comments CT CHEST LUNG CANCER SCREENING 07/15/2020 2:26 PM EST documented in this encounter Results * CT Chest Lung Cancer Screening (07/15/2020 2:26 PM EST) Anatomical Region Laterality Modality Chest Computed Tomogra phy 07/15/2020 2:26 PM EST us External Provider IMG CT PROCEDURES Final Result documented in this encounter Visit Diagnoses Not on filedocumented in this encounter Care Teams Cartridge Loading Operator Relationship Specialty Start Date End Date None, None [address] [place] [address] PCP - General NONE FOUND 10/02/22 12/07/23 Franco Boston MD [address] [place] [address] PCP - General 12/08/23 Augustine Carter MD [address] [place] [phone] Consulting Physician Medical Oncology 09/30/22 documented as of this encounter
--- NOTE | 2025-02-17 13:21 | XR_ITS ---
FINAL REPORT TECHNIQUE: Chest PA & Lateral CLINICAL HISTORY: SMALL CELL CARCINOMA RT-LUNG COMPARISON: 09/23/2024 FINDINGS: 2 views of the chest were performed. The heart size is normal. There is an unfolded aorta. Scarring is noted at the lung bases. There is no acute cardiopulmonary process. There are no pleural effusions. There is no pneumothorax. The bony thorax appears intact. IMPRESSION: No acute cardiopulmonary process. Reviewed, Interpreted and Dictated by Rafael Garcia MD Transcribed by Elizabeth Delaney Authenticated and [facility]
== END 2025-02-17 23:59 | disposition home or self-care (01) ==
LOC: RAD 13:19
PROVIDERS: PCP Family Medicine; Visit Provider Family Medicine
DX: C34.91 Malignant neoplasm of unspecified part of right bronchus or lung (principal); J98.4 Other disorders of lung
CPT/HCPCS: 71046